=== PATIENT | male | born 1970 ===

== ENCOUNTER 2019-01-26 18:33 | Emergency (ER) | payer OTHER ==
--- NOTE | 2019-01-26 19:06 | ED ---
Psych HPI - General Chief Complaint: Psychiatric Symptoms Stated Complaint: Mental Health Petition Time Seen by Provider: 01/26/19 18:50 Source: patient, police Mode of arrival: wheelchair - History of Present Illness Initial Comments: 48-year-old male patient is brought to the emergency department today for medical clearance to be incarcerated. Patient was found walking down the road caring [employer] stating that he was going to kill himself. Patient does admit to drinking alcohol. Patient states he is not currently suicidal but states that there are people in this world that he would like to harm. He denies any current injuries or self-inflicted wounds. Denies any street drug use. Denies any current physical symptoms or concerns. Patient denies any recent rash, fe marcus, chills, shortness breath, chest pain, abdominal pain, nausea, vomiting, diarrhea, constipation, back pain, numbness, tingling, dizziness, weakness, hematuria, dysuria, urinary urgency, urinary frequency, headache, visual changes, or any other complaints. - Related Data Allergies Allergy/AdvReac Type Severity Reaction Status Date / Time No Known Allergies Allergy Verified 01/26/19 18:47 Review of Systems ROS Statement: Those systems with pertinent positive or pertinent negative responses have been documented in the HPI. ROS Other: All systems not noted in ROS Statement are negative. Past Medical History Past Medical History: No Reported History History of Any Multi-Drug Resistant Organisms: None Reported Past Surgical History: No Surgical Hx Reported Past Psychological History: Anxiety Smoking Status: Current every day smoker Past Alcohol Use History: Daily Past Drug Use History: Methamphetamine General Exam Limitations: no limitations General appearance: alert, in no apparent distress, other (Physical well- developed, well-nourished adult male patient in no acute distress. Vital signs upon presentation are temperature 97.6F, pulse 78, respirations 18, blood pressure 136/90, pulse ox 100% on room air.) Eye exam: Present: normal appearance, PERRL, EOMI. Absent: scleral icterus, conjunctival injection, periorbital swelling ENT exam: Present: normal exam, normal oropharynx, mucous membranes moist Respiratory exam: Present: normal lung sounds bilaterally. Absent: respiratory distress, wheezes, rales, rhonchi, stridor Cardiovascular Exam: Present: regular rate, normal rhythm, normal heart sounds. Absent: systolic murmur, diastolic murmur, rubs, gallop, clicks GI/Abdominal exam: Present: soft, normal bowel sounds. Absent: distended, tenderness, guarding, rebound, rigid Neurological exam: Present: alert, oriented X3, CN II-XII intact Psychiatric exam: Present: normal affect, normal mood, homicidal ideation. Absent: suicidal ideation Skin exam: Present: warm, dry, intact, normal color. Absent: rash Course Vital Signs 01/26/19 01/26/19 18:42 19:16 Temperature 97.6 F 98.1 F Pulse Rate 78 72 Respiratory 18 16 Rate Blood Pressure 136/90 132/87 O2 Sat by Pulse 100 98 Oximetry Medical Decision Making - Medical Decision Making 48-year-old male patient presented to the emergency department today for medical clearance for long-term. Physical examination is unremarkable. Patient denies suicidal ideation but states that he is homicidal. Patient does seem to be intoxicated. Police officers did receive a breath alcohol of 0.06. They're requesting medical clearance to take him to long-term. Physical exam again is unremarkable, patient denies suicidal ideations or he will be cleared medically and released into the custody of the police. Return parameters were discussed in detail. They verbalize understanding and agree with this plan Disposition Clinical Impression: Medical clearance for incarceration, Alcohol intoxication Disposition: HOME SELF-CARE Condition: Good Instructions (If sedation given, give patient instructions): Alcohol Intoxication (ED) Is patient prescribed a controlled substance at d/c from ED?: No Referrals: Nonstaff,Physician [Primary Care Provider] - 1-2 days Time of Disposition: 19:06
[2019-01-26 19:23] VITALS: BP 132/87; PULSE 72; RESP 16; TEMP 98.1
== END 2019-01-26 19:15 | disposition home or self-care (01) ==
LOC: EC 18:33
DX: Z02.89 Encounter for other administrative examinations (principal); F10.129 Alcohol abuse with intoxication, unspecified; R45.850 Homicidal ideations; F17.200 Nicotine dependence, unspecified, uncomplicated
CPT/HCPCS: 99284